=== PATIENT | female | born 1945 | race Caucasian/White ===

== ENCOUNTER 2017-09-23 19:16 | Emergency (ER) | payer MEDICARE, BC ==
[2017-09-23 19:27] VITALS: BP 168/94; PULSE 86; RESP 18; TEMP 97.9
--- NOTE | 2017-09-23 20:59 | XR ---
PROCEDURE: XR hand complete RT, 3 views DATE AND TIME: 09/23/2017 7:45 PM REFERRING PHYSICIAN: Micheal Perez CLINICAL INDICATION: PHH, Pain after fall TECHNIQUE: Department protocol. COMPARISON: None FINDINGS: There is no fracture or malalignment. Multifocal moderate osteoarthritis changes are noted, more advanced at the radiocarpal joint. The soft tissues are unremarkable. IMPRESSION: NO ACUTE PROCESS.
--- NOTE | 2017-09-23 21:31 | ED ---
General Adult HPI - General Chief complaint: Extremity Injury, Upper Stated complaint: Fell Time Seen by Provider: 09/23/17 21:06 Source: patient, RN notes reviewed Mode of arrival: ambulatory Limitations: no limitations - History of Present Illness Initial comments: 72-year-old female presents to the emergency department for a chief complaint of right hand pain 3 hours. Patient states she was at a graduation when she tripped on a piece of concrete and fell onto her right hand. Patient states the pain is mostly along the third MCP joint. Patient denies pain in the scaphoid, wrist, or rest of the hand. Patient denies hitting her head or losing consciousness. Patient has not tried anything for pain. Patient states she is going to [place] for another graduation tomorrow and just wants to make sure her hand is okay. Patient denies pain elsewhere or any other injuries. Patient denies any other complaints at this time including shortness of breath, chest pain, headache, abdominal pain, nausea or vomiting. - Related Data Home Medications Medication Instructions Recorded Confirmed Acetaminophen Tab [Tylenol Tab] 325 mg PO Q4-6H PRN 02/19/16 09/23/17 Cetirizine HCl [Zyrtec] 10 mg PO DAILY 02/19/16 09/23/17 Magnesium 200 mg PO DAILY 02/19/16 09/23/17 [place] 1 tab PO DAILY 02/19/16 09/23/17 [place]-3 Fatty Acids/Fish Oil [Fish 1 each PO DAILY 02/19/16 09/23/17 Oil 1,000 mg Softgel] Pravastatin Sodium [Pravachol] 40 mg PO HS 02/19/16 09/23/17 Allergies Allergy/AdvReac Type Severity Reaction Status Date / Time No Known Allergies Allergy Verified 09/23/17 19:27 Review of Systems ROS Statement: Those systems with pertinent positive or pertinent negative responses have been documented in the HPI. ROS Other: All systems not noted in ROS Statement are negative. Past Medical History Past Medical History: Cancer, Hyperlipidemia Additional Past Medical History / Comment(s): hx. polio-wears brace, hx. skin cancer History of Any Multi-Drug Resistant Organisms: None Reported Past Surgical History: Hysterectomy, Orthopedic Surgery Additional Past Surgical History / Comment(s): right leg ORIF, mohs procedure, right ankle surg. Past Anesthesia/Blood Transfusion Reactions: No Reported Reaction Past Psychological History: No Psychological Hx Reported Smoking Status: Current every day smoker Past Alcohol Use History: None Reported Past Drug Use History: None Reported - Past Family History Father Family Medical History: Cancer Mother Family Medical History: Congestive Heart Failure (CHF) General Exam Limitations: no limitations General appearance: alert, in no apparent distress Head exam: Present: atraumatic, normocephalic, normal inspection Neck exam: Present: normal inspection, full ROM. Absent: tenderness, meningismus, lymphadenopathy Respiratory exam: Present: normal lung sounds bilaterally. Absent: respiratory distress, wheezes, rales, rhonchi, stridor Cardiovascular Exam: Present: regular rate, normal rhythm, normal heart sounds. Absent: systolic murmur, diastolic murmur, rubs, gallop, clicks Extremities exam: Present: full ROM (Full range of motion of the right hand including the 3rd MCP), tenderness (Tenderness to the 3rd MCP joint of the right hand dorsal aspect. No tenderness also in the hand or wrist. No tenderness in the scaphoid area.), normal capillary refill (Refill less than 2 seconds and pedal pulse 2+.), joint swelling (There is mild swelling and ecchymosis noted on the 3rd MCP joint of the left hand, dorsal aspect), other ( Sensation intact in the right hand in all digits) Back exam: Present: normal inspection, full ROM. Absent: tenderness Neurological exam: Present: alert Psychiatric exam: Present: normal affect, normal mood Course Vital Signs 09/23/17 19:23 Temperature 97.9 F Pulse Rate 86 Respiratory 18 Rate Blood Pressure 168/94 O2 Sat by Pulse 95 Oximetry Medical Decision Making - Medical Decision Making 72-year-old female presents to the emergency department for a chief complaint of right hand pain 3 hours. Patient fell a few hours ago onto her right hand. Patient does have some swelling on the MCP joint as well as tenderness but has full range of motion in the MCP joint as well as the rest of the hand. Neurovascular intact. X-ray demonstrates no acute fractures or dislocations. Patient will be discharged with Motrin and Tylenol for pain relief. Patient states she does not need a prescription for this. Patient will return to the emergency Department if she has any worsening symptoms. She was educated that she may need repeat x-rays in 7-10 days if symptoms continue. She was also educated to rest, ice, compress, and elevate the right hand. She will follow- up with primary care in 1-2 days. Disposition Clinical Impression: Hand pain Disposition: HOME SELF-CARE Condition: Good Instructions: RICE Therapy (ED) Additional Instructions: Please remember to ice, elevate, and rest the right hand. Take Motrin and Tylenol for pain relief. Return to the emergency department if you have any worsening symptoms. Follow up with primary care in 1-2 days. If symptoms continue for 7-10 days you may need repeat x-rays. Is patient prescribed a controlled substance at d/c from ED?: No Referrals: Morgan Hinojosa DO [Primary Care Provider] - 1-2 days Time of Disposition: 21:31
== END 2017-09-23 21:40 | disposition home or self-care (01) ==
LOC: EC 19:16
DX: S60.222A Contusion of left hand, initial encounter (principal); M25.441 Effusion, right hand; E78.5 Hyperlipidemia, unspecified; F17.200 Nicotine dependence, unspecified, uncomplicated; Z79.899 Other long term (current) drug therapy; Z85.828 Personal history of other malignant neoplasm of skin; Z86.12 Personal history of poliomyelitis; Z98.890 Other specified postprocedural states; Z97.8 Presence of other specified devices; W18.09XA Striking against other object with subsequent fall, initial encounter; Y92.89 Other specified places as the place of occurrence of the external cause
CPT/HCPCS: 99283

== ENCOUNTER 2019-11-04 15:26 | Emergency (ER) | payer MEDICARE, BC ==
[2019-11-04 15:32] VITALS: RESP 18
[2019-11-04] MEDS ORDERED: ONDANSETRON 4 MG/2 ML VIAL IVP STA (15:43)
[2019-11-04] MEDS ORDERED: KETOROLAC 30 MG/ML 1 ML VIAL IVP STA (15:51)
[2019-11-04] MEDS ORDERED: SODIUM CHLORIDE 0.9% 1,000 ML IV STA (15:51)
[2019-11-04] MEDS ORDERED: LORazepam 2 MG/ML INJ IV STA (15:53)
[2019-11-04 16:03] LABS: Basophils % (A) 0 %; Eosinophils # (A) 0.1 k/uL (0-0.7); Eosinophils % (A) 1 %; HCT 47.5 % (34.0-46.0); Lymphocytes # (A) 1.5 k/uL (1.0-4.8); Lymphocytes % (A) 12 %; MCH 30.6 pg (25.0-35.0); MCHC 31.6 g/dL (31.0-37.0); MCV 96.7 fL (80.0-100.0); Mean Platelet Volume 8.1; Monocytes # (A) 0.4 k/uL (0-1.0); Monocytes % (A) 3 %; Neutrophils % (A) 83 %; Platelet Count 226 k/uL (150-450); RBC 4.91 m/uL (3.80-5.40); RDW 13.6 % (11.5-15.5)
--- NOTE | 2019-11-04 16:08 | ED ---
Abdominal Pain HPI - General Source: patient Mode of arrival: EMS Limitations: no limitations <Sophia Cotton - Last Filed: 11/04/19 18:30> <Ellen Michelleah Mami - Last Filed: 11/12/19 13:28> - General Chief Complaint: Abdominal Pain Stated Complaint: R flank pain Time Seen by Provider: 11/04/19 15:30 - History of Present Illness Initial Comments: Patient is a 74-year-old female presenting to the emergency department via EMS with complaints of right sided lower back, right abdominal discomfort that started today. Patient states she's been dealing with constipation over the last few days and was on the toilet having a bowel movement when she felt the pain start in her right flank area. Patient states the pain is radiating towards her right side of her abdomen and to the right lower quadrant. Patient does admit to nausea, and 2 episodes of vomiting. She denies diarrhea. She has previous history of partial hysterectomy, no other abdominal surgeries. She denies history of kidney stones. She denies recent fever, chills, chest pain, shortness of breath. She states she's never had pain like this before. She has no further complaints at this time. Upon arrival to the ER, patient's blood pressure is elevated at 178/111. Rest of vitals are normal. (Sophia Cotton) - Related Data Home Medications Medication Instructions Recorded Confirmed Acetaminophen Tab [Tylenol Tab] 325 mg PO Q4-6H PRN 02/19/16 09/23/17 Cetirizine HCl [Zyrtec] 10 mg PO DAILY 02/19/16 09/23/17 Magnesium 200 mg PO DAILY 02/19/16 09/23/17 [place] 1 tab PO DAILY 02/19/16 09/23/17 [place]-3 Fatty Acids/Fish Oil [Fish 1 each PO DAILY 02/19/16 09/23/17 Oil 1,000 mg Softgel] Pravastatin Sodium [Pravachol] 40 mg PO HS 02/19/16 09/23/17 Previous Rx's Medication Instructions Recorded Cephalexin [Keflex] 500 mg PO BID 7 Days #14 cap 11/04/19 Ketorolac [Toradol] 10 mg PO Q8HR #10 tab 11/04/19 Allergies Allergy/AdvReac Type Severity Reaction Status Date / Time No Known Allergies Allergy Verified 11/04/19 15:32 Review of Systems ROS Other: All systems not noted in ROS Statement are negative. <Sophia Cotton Tito - Last Filed: 11/04/19 18:30> ROS Other: All systems not noted in ROS Statement are negative. <Maryjane Michelle - Last Filed: 11/12/19 13:28> ROS Statement: Those systems with pertinent positive or pertinent negative responses have been documented in the HPI. Past Medical History Past Medical History: Cancer, Hyperlipidemia, Thyroid Disorder Additional Past Medical History / Comment(s): hx. polio-wears brace, hx. skin cancer History of Any Multi-Drug Resistant Organisms: None Reported Past Surgical History: Hysterectomy, Orthopedic Surgery Additional Past Surgical History / Comment(s): right leg ORIF, mohs procedure, right ankle surg. Past Anesthesia/Blood Transfusion Reactions: No Reported Reaction Past Psychological History: No Psychological Hx Reported Smoking Status: Current every day smoker Past Alcohol Use History: None Reported Past Drug Use History: None Reported - Past Family History Father Family Medical History: Cancer Mother Family Medical History: Congestive Heart Failure (CHF) <Sophia Cotton Tito - Last Filed: 11/04/19 18:30> General Exam Limitations: no limitations <Sophia Cotton Tito - Last Filed: 11/04/19 18:30> - General Exam Comments Initial Comments: GENERAL: Patient had vomiting episodes during the exam, seems to be in moderate amount of pain. HEAD: Atraumatic, normocephalic. EYES: Pupils equal round and reactive to light, extraocular movements intact, sclera anicteric, conjunctiva are normal. ENT: TMs normal, nares patent, oropharynx clear without exudates. Moist mucous membranes. NECK: Normal range of motion, supple without lymphadenopathy or JVD. LUNGS: Breath sounds clear to auscultation bilaterally and equal. No wheezes rales or rhonchi. HEART: Regular rate and rhythm without murmurs, rubs or gallops. ABDOMEN: Tender to palpation of the lower right back, right side of the abdomen, right lower quadrant. Soft, normoactive bowel sounds. No guarding, no rebound. No masses appreciated. : Deferred EXTREMITIES: Normal range of motion, no pitting or edema. No clubbing or cyanosis. NEUROLOGICAL: Normal speech, normal gait. PSYCH: Normal mood, normal affect. SKIN: Warm, Dry, normal turgor, no rashes or lesions noted. (Sophia Cotton) Course Vital Signs 11/04/19 11/04/19 11/04/19 15:29 17:17 18:45 Temperature 98.8 F 98.2 F Pulse Rate 66 67 65 Respiratory 18 18 18 Rate Blood Pressure 178/111 142/92 115/59 O2 Sat by Pulse 98 95 98 Oximetry Medical Decision Making - Lab Data Result diagrams: 11/04/19 15:30 11/04/19 15:30 <Sophia Cotton - Last Filed: 11/04/19 18:30> - Lab Data Result diagrams: 11/04/19 15:30 11/04/19 15:30 <Maryjane Michelle - Last Filed: 11/12/19 13:28> - Medical Decision Making Patient is a 74-year-old female here for right-sided abdominal pain with acute o nset. She presented hypertensive, rest of vitals normal. On exam patient had tenderness of the right side of the abdomen, right lower quadrant. CT of the abdomen shows a 5 mm obstructing calculus in the distal right ureter with retroperitoneal fluid on the right side extending around the kidney into the pelvis which is probably a neuroma in this patient, 4 cm abdominal aortic aneurysm which patient is aware of. Labwork shows slight leukocytosis at 12.0, likely reactive rest of lab work is unremarkable, urine shows no signs of infection. I did discuss this case with on-call urology who is okay with patient being discharged home and he will see her in the office this week. She will be started on Keflex as well as given Toradol for discomfort. Upon reexamination of patient, her pain is 0/10, and her blood pressure has normalized. She is in agreement with this plan of care. First dose of antibiotic will be given in the ER. She is stable for discharge. Return parameters were discussed with the patient she verbalized understanding. Case discussed with Dr. Michelle. (Sophia Cotton) I was available for consultation in the emergency department. The history and physical exam were done by the midlevel provider. I was consulted for this patients care. I reviewed the case with the midlevel provider and based on their presentation of the patient, I agree with the assessment, medical decision making and plan of care as documented. Chart was dictated using [employer] dictation software. Attempts were made to correct any dictation errors however some typographical errors may persist. Patient was seen during a national state of emergency due to the Covid-19 pandemic. (Maryjane Michelle) - Lab Data Lab Results 11/04/19 11/04/19 11/04/19 Range/Units 15:30 15:30 15:30 WBC 12.0 H (3.8-10.6) k/uL RBC 4.91 (3.80-5.40) m/uL Hgb 15.0 (11.4-16.0) gm/dL Hct 47.5 H (34.0-46.0) % MCV 96.7 (80.0-100.0) fL MCH 30.6 (25.0-35.0) pg MCHC 31.6 (31.0-37.0) g/dL RDW 13.6 (11.5-15.5) % Plt Count 226 (150-450) k/uL Neutrophils % 83 % Lymphocytes % 12 % Monocytes % 3 % Eosinophils % 1 % Basophils % 0 % Neutrophils # 10.0 H (1.3-7.7) k/uL Lymphocytes # 1.5 (1.0-4.8) k/uL Monocytes # 0.4 (0-1.0) k/uL Eosinophils # 0.1 (0-0.7) k/uL Basophils # 0.0 (0-0.2) k/uL PT 10.3 (9.0-12.0) sec INR 1.0 (<1.2) APTT 24.1 (22.0-30.0) sec Sodium 137 (137-145) mmol/L Potassium 4.1 (3.5-5.1) mmol/L Chloride 107 (98-107) mmol/L Carbon Dioxide 23 (22-30) mmol/L Anion Gap 7 mmol/L BUN 16 (7-17) mg/dL Creatinine 0.56 (0.52-1.04) mg/dL Est GFR (CKD-EPI)AfAm >90 (>60 ml/min/1.73 sqM) Est GFR (CKD-EPI)NonAf >90 (>60 ml/min/1.73 sqM) Glucose 134 H (74-99) mg/dL Plasma Lactic Acid [place] (0.7-2.0) mmol/L Calcium 9.3 (8.4-10.2) mg/dL Total Bilirubin 0.4 (0.2-1.3) mg/dL AST 22 (14-36) U/L ALT 14 (4-34) U/L Alkaline Phosphatase 115 (38-126) U/L Total Protein 7.3 (6.3-8.2) g/dL Albumin 4.2 (3.5-5.0) g/dL Amylase 49 (30-110) U/L Lipase 69 (23-300) U/L Urine Color Urine Appearance (Clear) Urine pH (5.0-8.0) Ur Specific [place] (1.001-1.035) Urine Protein (Negative) Urine Glucose (UA) (Negative) Urine Ketones (Negative) Urine Blood (Negative) Urine Nitrite (Negative) Urine Bilirubin (Negative) Urine Urobilinogen (<2.0) mg/dL Ur Leukocyte Esterase (Negative) 11/04/19 11/04/19 Range/Units 15:30 15:30 WBC (3.8-10.6) k/uL RBC (3.80-5.40) m/uL Hgb (11.4-16.0) gm/dL Hct (34.0-46.0) % MCV (80.0-100.0) fL MCH (25.0-35.0) pg MCHC (31.0-37.0) g/dL RDW (11.5-15.5) % Plt Count (150-450) k/uL Neutrophils % % Lymphocytes % % Monocytes % % Eosinophils % % Basophils % % Neutrophils # (1.3-7.7) k/uL Lymphocytes # (1.0-4.8) k/uL Monocytes # (0-1.0) k/uL Eosinophils # (0-0.7) k/uL Basophils # (0-0.2) k/uL PT (9.0-12.0) sec INR (<1.2) APTT (22.0-30.0) sec Sodium (137-145) mmol/L Potassium (3.5-5.1) mmol/L Chloride (98-107) mmol/L Carbon Dioxide (22-30) mmol/L Anion Gap mmol/L BUN (7-17) mg/dL Creatinine (0.52-1.04) mg/dL Est GFR (CKD-EPI)AfAm (>60 ml/min/1.73 sqM) Est GFR (CKD-EPI)NonAf (>60 ml/min/1.73 sqM) Glucose (74-99) mg/dL Plasma Lactic Acid [place] 1.6 (0.7-2.0) mmol/L Calcium (8.4-10.2) mg/dL Total Bilirubin (0.2-1.3) mg/dL AST (14-36) U/L ALT (4-34) U/L Alkaline Phosphatase (38-126) U/L Total Protein (6.3-8.2) g/dL Albumin (3.5-5.0) g/dL Amylase (30-110) U/L Lipase (23-300) U/L Urine Color Light Yellow Urine Appearance Clear (Clear) Urine pH 7.0 (5.0-8.0) Ur Specific [place] 1.013 (1.001-1.035) Urine Protein Negative (Negative) Urine Glucose (UA) Negative (Negative) Urine Ketones 1+ H (Negative) Urine Blood Negative (Negative) Urine Nitrite Negative (Negative) Urine Bilirubin Negative (Negative) Urine Urobilinogen <2.0 (<2.0) mg/dL Ur Leukocyte Esterase Negative (Negative) Disposition Is patient prescribed a controlled substance at d/c from ED?: No <Sophia Cotton - Last Filed: 11/04/19 18:30> <Maryjane Michelle - Last Filed: 11/12/19 13:28> Clinical Impression: Right ureteral stone, Right flank pain Disposition: HOME SELF-CARE Condition: Stable Instructions (If sedation given, give patient instructions): Kidney Stones (ED) Additional Instructions: Please return to the Emergency Department if symptoms worsen or any other concerns. Take antibiotic as prescribed. Follow-up with urology as discussed. Prescriptions: Cephalexin [Keflex] 500 mg PO BID 7 Days #14 cap Ketorolac [Toradol] 10 mg PO Q8HR #10 tab Referrals: Morgan Hinojosa DO [Primary Care Provider] - 1-2 days Victor Manuel Quinteros MD [STAFF PHYSICIAN] - 1-2 days
[2019-11-04 16:15] LABS: Partial Thromboplastin Time 24.1 sec (22.0-30.0); Prothrombin Time 10.3 sec (9.0-12.0)
[2019-11-04 16:17] LABS: ALT 14 U/L (4-34); AST 22 U/L (14-36); African American GFR (CKD) >90 (>60 ml/min/1.73 sqM); Albumin 4.2 g/dL (3.5-5.0); Alkaline Phosphatase 115 U/L (38-126); Amylase 49 U/L (30-110); Anion Gap 7 mmol/L; Blood Urea Nitrogen 16 mg/dL (7-17); Calcium 9.3 mg/dL (8.4-10.2); Carbon Dioxide 23 mmol/L (22-30); Chloride 107 mmol/L (98-107); Glucose 134 mg/dL (74-99); Non-African American GFR(CKD) >90 (>60 ml/min/1.73 sqM); Potassium 4.1 mmol/L (3.5-5.1); Sodium 137 mmol/L (137-145); Total Bilirubin 0.4 mg/dL (0.2-1.3); Total Protein 7.3 g/dL (6.3-8.2)
--- NOTE | 2019-11-04 17:03 | CT ---
EXAMINATION TYPE: CT abdomen pelvis wo con DATE OF EXAM: 11/04/2019 COMPARISON: None HISTORY: Right sided flank pain. CT DLP: 483.2 mGycm Automated exposure control for dose reduction was used. The lung bases are clear of infiltrate. There is no pleural effusion. Heart size is normal. There is no pericardial effusion. There is small hiatal hernia. There is minimal subsegmental atelectasis at t he lung bases. Liver shows no focal defect. Bile ducts are not dilated. Spleen is intact. Stomach appears intact. Th ere is no evidence of pancreatic mass. Gallbladder appears normal. There is no adrenal mass. There is right-sided hydronephrosis and hydroureter. There is extensive rig ht side perinephric fluid extending in the pararenal space and along the right psoas muscle. Appendix is lateral and appears normal. Right ureter is difficult to localize because of the periureteral mariza ma and fluid. There is probably a 5 mm obstructing calculus in the distal right ureter near the urete ral vesicle junction. There is fusiform 4 cm lower abdominal aortic aneurysm. There is no retroperitoneal adenopathy. The r ight side retroperitoneal fluid has density of 6 which is consistent with urine. The bladder distends smoothly. There is no inguinal hernia. There is hysterectomy. There is no free f luid in the pelvis. There is no sign of a bowel obstruction. I see no mesenteric edema. There are num erous sigmoid diverticula. There is no sign of diverticulitis. There is a first-degree L4-5 spondylol isthesis without definite spondylolysis. There is no significant compression deformity in the lumbar spine. The bony pelvis appears intact. There is some high density fluid material in the distal small bowel that could be medication. There is increased subcutaneous density over the posterior left and right ischium that could relate t o edema and cellulitis. IMPRESSION: Retroperitoneal fluid on the right side extending around the kidney into the pelvis that is probably urinoma in this patient with hydronephrosis and apparent obstructing stone at the right ureterovesica l junction. 4 cm abdominal aortic aneurysm. Sigmoid diverticulosis. Decubitus subcutaneous edema could relate to cellulitis.
[2019-11-04 17:33] LABS: Appearance,Urine Clear (Clear); Bilirubin,Urine Negative (Negative); Blood,Urine Negative (Negative); Color,Urine Light Yellow; Glucose,Urine (UA) Negative (Negative); Ketones,Urine 1+ (Negative); Leukocyte Esterase,Urine Negative (Negative); Nitrite,Urine Negative (Negative); Protein,Urine Negative (Negative); Specific Gravity,Urine 1.013 (1.001-1.035); Urobilinogen,Urine <2.0 mg/dL (<2.0)
[2019-11-04] MEDS ORDERED: CEPHALEXIN 500 MG CAP PO STA (18:18)
[2019-11-04] MEDS ORDERED: ETODOLAC 400 MG TAB PO STA (18:18)
[2019-11-04 18:47] VITALS: BP 115/59; PULSE 65; TEMP 98.2
== END 2019-11-04 18:45 | disposition home or self-care (01) ==
LOC: EC 15:26
DX: N20.1 Calculus of ureter (principal); I10 Essential (primary) hypertension; E78.5 Hyperlipidemia, unspecified; F17.200 Nicotine dependence, unspecified, uncomplicated; Z85.828 Personal history of other malignant neoplasm of skin; Z80.9 Family history of malignant neoplasm, unspecified; Z90.710 Acquired absence of both cervix and uterus
CPT/HCPCS: 36415; 80053; 82150; 83605; 83690; 85025; 85610; 85730; 81003; 74176; 99284; 96374; 96375 ×2; 96361; J2060; J2405; J1885

== ENCOUNTER → 2019-11-09 | Outpatient (CLI) | payer MEDICARE, BC ==
--- NOTE | 2019-11-09 13:38 | XR ---
EXAMINATION TYPE: XR KUB DATE OF EXAM: 11/09/2019 HISTORY: Pain Comparison: None.Single KUB is submitted for interpretation. Findings: Right renal calculi: None Visualized. Right ureteral calculi: None Visualized. Left renal calculi: None Visualized. Left ureteral calculi: None Visualized. Pelvic calcifications: None Visualized. Bowel gas pattern is unremarkable. No free air. No mass effects. IMPRESSION: 1. No calculi identified with certainty at this time.
== END | disposition home or self-care (01) ==
LOC: RADXRMAIN 12:01
PROVIDERS: ATTEND Urology
DX: N20.1 Calculus of ureter (principal)
CPT/HCPCS: 74018

== ENCOUNTER → 2020-07-15 | Outpatient (CLI) | payer MEDICARE, BC ==
--- NOTE | 2020-07-15 15:32 | XR ---
EXAMINATION TYPE: XR chest 2V DATE OF EXAM: 07/15/2020 COMPARISON: Prior chest x-ray 02/12/2014 HISTORY: Cough, nicotine dependence TECHNIQUE: Frontal and lateral views of the chest are obtained. FINDINGS: There is no focal air space opacity, pleural effusion, or pneumothorax seen. The cardiac silhouette shows the heart is small. There are prominent lung volumes with increased retrosternal ai rspace suggesting underlying COPD. Aorta is dense. The osseous structures are intact. IMPRESSION: No acute cardiopulmonary process.
== END | disposition home or self-care (01) ==
LOC: RADXRYALE 11:05
PROVIDERS: ATTEND Physician Assistant Medical
DX: R05 Cough (principal); Z87.891 Personal history of nicotine dependence
CPT/HCPCS: 71046